=== PATIENT | male | born 1955 | race Asian ===

== ENCOUNTER 2019-12-30 08:20 | Outpatient (CLI) | payer SELFPAY | END 2019-12-30 08:21 | disposition home or self-care (01) | LOC: WOUND 08:20 | PROVIDERS: ATTEND Internal Medicine | DX: E11.621 Type 2 diabetes mellitus with foot ulcer (principal); L97.524 Non-pressure chronic ulcer of other part of left foot with necrosis of bone; E11.69 Type 2 diabetes mellitus with other specified complication; M86.672 Other chronic osteomyelitis, left ankle and foot; I10 Essential (primary) hypertension; F17.210 Nicotine dependence, cigarettes, uncomplicated | CPT/HCPCS: 82962; G0277; 99183 ==